=== PATIENT | female | born 1995 | race Two or more races ===

== ENCOUNTER → 2018-01-19 | Outpatient (CLI) | payer OTHER ==
--- NOTE | 2018-01-19 17:02 | RAD ---
Pelvic ultrasound History: Pelvic pain. Comparison: None. Technique: Transabdominal ultrasound was performed to evaluate the uterine fundus. Endovaginal imaging was performed to evaluate optimally the endometrial canal and lower uterine segment. TRANSABDOMINAL IMAGING Findings: The uterus measures 7.4 cm in length and is unremarkable. The endometrium measures 8 mm. Right ovary measures 5.1 x 3.3 x 3.7 cm and demonstrates functional cyst measuring 3.8 cm. The left ovary measures 4.3 x 2.6 x 3.6 cm and demonstrates dominant 2.8 cm follicle. No adnexal masses are identified. No significant free fluid is identified within the pelvis. ENDOVAGINAL IMAGING Findings: The uterus measures 5.8 cm in length and is unremarkable. The endometrium measures 5 mm. Within the endometrial canal, there is a linear, shadowing, echogenic structure, presumably intrauterine device. Right ovary measures 3.4 x 1.8 x 1.8 cm and demonstrates small follicles. The left ovary measures 3.7 x 3.0 x 3.0 cm and demonstrates 2.4 cm dominant follicle. No adnexal masses are identified. Small amount of physiologic free fluid is seen in the pelvis. Both ovaries demonstrate normal vascular flow upon Doppler interrogation and are without evidence of torsion. Impression: 1. Echogenic structure in the endometrial canal, presumably intrauterine device. Recommend clinical correlation. 2. Otherwise, unremarkable pelvic ultrasound. Electronically signed by: Sedrick Soria MD (01/19/2018 4:58 PM) [id number]
== END | disposition home or self-care (01) ==
LOC: US 15:49
PROVIDERS: ATTEND Physician Assistant
DX: N83.291 Other ovarian cyst, right side (principal); N77.1 Vaginitis, vulvitis and vulvovaginitis in diseases classified elsewhere; Z97.5 Presence of (intrauterine) contraceptive device
CPT/HCPCS: 76830; 76856